=== PATIENT | male | born 1980 | race Caucasian/White ===

== ENCOUNTER 2021-01-13 10:22 | Emergency (ER) | payer OTHER ==
[2021-01-13 10:48] LABS: BASOPHILS # (AUTO) 0.1 10^3/uL (0.0-0.1); BASOPHILS % (AUTO) 0.9 %; EOSINOPHILS # (AUTO) 0.2 10^3/uL (0.0-0.7); EOSINOPHILS % (AUTO) 2.2 %; HCT - HEMATOCRIT 44.7 % (42.0-52.0); HGB - HEMOGLOBIN 15.8 g/dL (14.0-18.0); LYMPHOCYTES % (AUTO) 27.2 %; MEAN CORPUSCULAR HEMOGLOBIN 33.3 pg (27.0-31.0); MEAN CORPUSCULAR HGB CONC 35.3 g/dL (32.0-36.0); MEAN CORPUSCULAR VOLUME 94.3 fL (80.0-94.0); MEAN PLATELET VOLUME 9.8 fL (7.4-11.4); MONOCYTES # (AUTO) 0.6 10^3/uL (0.0-1.0); MONOCYTES % (AUTO) 8.1 %; NEUTROPHILS # (AUTO) 4.5 10^3/uL (1.5-6.6); NEUTROPHILS % (AUTO) 61.2 %; PLT - PLATELET COUNT 332 10^3/uL (130-450); RED BLOOD COUNT 4.74 10^6/uL (4.70-6.10); RED CELL DISTRIBUTION WIDTH 12.1 % (12.0-15.0); WHITE BLOOD COUNT 7.4 x10^3/uL (4.8-10.8)
[2021-01-13] MEDS: SODIUM CHLORIDE 0.9% 1,000 ML IV STA (10:50)
--- NOTE | 2021-01-13 10:51 | ED Physician Documentation ---
History of Present Illness - Stated complaint Stated Complaint: CHEST TIGHTNESS/FAINTING - History obtained from History obtained from: Patient - Additonal information Additional information: 40-year-old man, previously healthy, without family history of coronary artery disease or cardiomyopathy, presents with fainting episode this morning and here in the emergency department. I was called to his room after he had been checked and and hooked up to the bus driver/monitor because he was speaking to the nurse and had an episode of rigor with eyes rolling back and bus driver/monitor briefly flat lining for 20 second interval. Upon review of bus driver/monitor patient was in NSR before and afterward. Patient returned to baseline immediately, did not bite tongue, no incontinence. He states he felt a wave of lightheadedness prior to passing out in the ED, as well as when it happened this morning at the place he stayed in [place]. patient went out last night, had 3 alcoholi beverages, and stayed at a friend's house in [place], sleeping well and waking up feeling normal. He ate breakfast and was watching TV on the couch when he felt a wave of nausea and lightheadedness and passed out. He then was driving and became lightheaded again, so came to the ED. He had a fainting episode in the past while showering with similar preceding symptoms of nausea and dizziness, was told by doctor it was likely vasovagal. Review of Systems Ten Systems: 10 systems reviewed and negative Constitutional: reports: Fatigue. denies: Fever, Chills Cardiac: denies: Chest pain / pressure Respiratory: denies: Dyspnea Neurologic: reports: Syncope PD PAST MEDICAL HISTORY - Present Medications Home Medications: Ambulatory Orders Medication Instructions Recorded Confirmed No Known Home Medications 01/13/21 01/13/21 - Allergies Allergies/Adverse Reactions: Allergies Allergy/AdvReac Type Severity Reaction Status Date / Time codeine Allergy Hives Verified 01/13/21 11:28 PD ED PE NORMAL - Vitals Vital signs reviewed: Yes - General General: Alert and oriented X 3, No acute distress, Well developed/nourished - HEENT HEENT: Atraumatic, PERRL, EOMI - Neck Neck: Supple, no meningeal sign - Cardiac Cardiac: RRR - Respiratory Respiratory: No respiratory distress, Clear bilaterally - Abdomen Abdomen: Non tender, Non distended - Derm Derm: Normal color, Warm and dry - Extremities Extremities: No deformity - Neuro Neuro: Alert and oriented X 3, environmental analyst 2-12 intact, No motor deficit, No sensory deficit - Psych Psych: Normal mood, Normal affect Results - Vitals Vitals: Vital Signs - 24 hr 01/13/21 01/13/21 01/13/21 10:33 10:45 11:19 Temperature 36.7 C Heart Rate 74 77 73 Respiratory 11 L 12 21 Rate Blood Pressure 155/86 H 147/75 H 145/70 H O2 Saturation 99 95 95 01/13/21 01/13/21 01/13/21 11:30 11:56 12:00 Temperature Heart Rate 71 56 L 67 Respiratory 17 9 L 13 Rate Blood Pressure 147/81 H 128/74 130/69 O2 Saturation 98 93 100 Oxygen O2 Source Nasal cannula Oxygen Flow Rate 2 - EKG (time done) 1026 Rate: Rate (enter#) (74) Rhythm: NSR [place]: Normal Intervals: Normal UT QRS: Normal Ischemia: Normal ST segments 1036 Rate: Rate (enter#) (66) Rhythm: NSR [place]: Normal Intervals: Normal UT QRS: Normal Ischemia: Normal ST segments - Labs Labs: Laboratory Tests 01/13/21 01/13/21 01/13/21 10:31 10:31 10:31 WBC 7.4 RBC 4.74 Hgb 15.8 Hct 44.7 MCV 94.3 H MCH 33.3 H MCHC 35.3 RDW 12.1 Plt Count 332 MPV 9.8 Neut # (Auto) 4.5 Lymph # (Auto) 2.0 [place] # (Auto) 0.6 Eos # (Auto) 0.2 Baso # (Auto) 0.1 Absolute Nucleated RBC 0.00 Nucleated RBC % 0.0 Sodium 137 Potassium 4.3 Chloride 99 L Carbon Dioxide 29 Anion Gap 9.0 BUN 14 Creatinine 1.2 Estimated GFR (MDRD) 67 L Glucose 116 H Calcium 9.5 Total Bilirubin 1.2 H AST 30 ALT 41 Alkaline Phosphatase 48 Troponin I High Sens 3.1 Total Protein 7.7 Albumin 4.7 Globulin 3.0 Albumin/Globulin Ratio 1.6 Lipase 25 01/13/21 11:51 WBC RBC Hgb Hct MCV MCH MCHC RDW Plt Count MPV Neut # (Auto) Lymph # (Auto) [place] # (Auto) Eos # (Auto) Baso # (Auto) Absolute Nucleated RBC Nucleated RBC % Sodium Potassium Chloride Carbon Dioxide Anion Gap BUN Creatinine Estimated GFR (MDRD) Glucose Calcium Total Bilirubin AST ALT Alkaline Phosphatase Troponin I High Sens 2.6 Total Protein Albumin Globulin Albumin/Globulin Ratio Lipase PD MEDICAL DECISION MAKING - ED course ED course: 40-year-old man presents with multiple fainting episodes this morning, one of them witnessed in the emergency room with sinus pauses of 20 seconds on bus driver/monitor. We will continue to monitor and obtain lab work and chest x-ray. 11:09am - patient with 2nd fainting episode in ED, again with Sinus pause of about 20 seconds on bus driver/monitor. Patient had preceding dizziness. RNs initiated CPR and patient came back to consciousness. repeat CXR without apparent rib fracture. Labwork noncontributory. will work on transfer for cardiology eval in light of these 20 sec asystolic periods accompanying his syncopal episodes. 11:56am - 3rd episode of syncope. patient felt rushing in his arms, legs, and sensation of anxiety in his chest, pressed his call button, and by the time we got there he had fainted very briefly. no sinus pause on the monitor this time but he did become bradycardic to the 40s. third ekg unchanged except for mild UT lengthening (now 208). 12:30pm - d/w Dr. Osman Ramirez, [facility] food preparation kitchen aide in regards to symptoms. happy to accept in transfer. d/w transfer center who are trying to find a bed for him. will call us back with update.
--- NOTE | 2021-01-13 11:10 | XRAY Report ---
PROCEDURE: Chest 1 View X-Ray INDICATIONS: Chest Pain TECHNIQUE: One view of the chest was acquired. COMPARISON: None FINDINGS: Surgical changes and devices: None. Lungs and pleura: No pleural effusions or pneumothorax. Lungs are clear. Mediastinum: Mediastinal contours appear normal. Heart size is normal. Bones and chest wall: No suspicious bony lesions. Overlying soft tissues appear unremarkable. IMPRESSION: No acute process. Reviewed by: Tess Navas MD on 01/13/2021 10:09 AM RODRIGUEZ Approved by: Tess Navas MD on 01/13/2021 10:09 AM RODRIGUEZ Station ID: [id number]
[2021-01-13 11:13] LABS: ALBUMIN 4.7 g/dL (3.2-5.5); ALBUMIN/GLOBULIN RATIO 1.6 (1.0-2.2); BILIRUBIN,TOTAL 1.2 mg/dL (0.2-1.0); CALCIUM 9.5 mg/dL (8.5-10.3); CREATININE 1.2 mg/dL (0.6-1.2); POTASSIUM 4.3 mmol/L (3.5-5.0); TOTAL PROTEIN 7.7 g/dL (6.7-8.2)
--- NOTE | 2021-01-13 11:20 | XRAY Report ---
PROCEDURE: Chest 1 View X-Ray INDICATIONS: POST CPR TECHNIQUE: One view of the chest was acquired. COMPARISON: 01/13/2021 at 1030 hours FINDINGS: Surgical changes and devices: None. Lungs and pleura: No pleural effusions or pneumothorax. Low lung volumes. Mild bilateral perihilar a telectasis. Mediastinum: Mediastinal contours appear normal. Heart size is normal. Bones and chest wall: No suspicious bony lesions. Overlying soft tissues appear unremarkable. IMPRESSION: No acute process. Reviewed by: Tess Navas MD on 01/13/2021 10:19 AM RODRIGUEZ Approved by: Tess Navas MD on 01/13/2021 10:19 AM RODRIGUEZ Station ID: [id number]
[2021-01-13] MEDS: SODIUM CHLORIDE 0.9% 1,000 ML IV ONE (12:10)
[2021-01-13 12:32] LABS: CORONAVIRUS 229E-RESP PCR NOT DETECTED; CORONAVIRUS HKU1-RESP PCR NOT DETECTED; CORONAVIRUS NL63-RESP PCR NOT DETECTED; CORONAVIRUS OC43-RESP PCR NOT DETECTED; HUMAN METAPNEUMOVIRUS NOT DETECTED; INFLUENZA A- RESP PCR PANEL NOT DETECTED; RHINOVIRUS/ENTEROVIRUS NOT DETECTED; SARS-CoV-2 -RESP PCR PANEL NOT DETECTED
[2021-01-13 12:33] LABS: B. PARAPERTUSSIS- RESP PCR PAN NOT DETECTED; B. PERTUSSIS- RESP PCR PANEL NOT DETECTED; C. PNEUMONIAE- RESP PCR PANEL NOT DETECTED; INFLUENZA B - RESP PCR PANEL NOT DETECTED; M. PNEUMONIAE- RESP PCR PANEL NOT DETECTED; PARAINFLUENZA VIRUS 1 NOT DETECTED; PARAINFLUENZA VIRUS 2 NOT DETECTED; PARAINFLUENZA VIRUS 3 NOT DETECTED; PARAINFLUENZA VIRUS 4 NOT DETECTED; RSV- RESP PCR PANEL NOT DETECTED
[2021-01-13 13:02] VITALS: BP 142/70
== END 2021-01-13 13:22 | disposition short-term general hospital (02) ==
LOC: ED 10:22
DX: R55 Syncope and collapse (principal); I49.5 Sick sinus syndrome; Z20.822 Contact with and (suspected) exposure to COVID-19
CPT/HCPCS: 0202U; 36415; 71045; 80053; 83690; 84484; 85025; 92950; 93005; 96360; 96361; 99284; 99285

== ENCOUNTER 2021-04-02 10:43 | Outpatient (CLI) | payer OTHER ==
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
== END 2021-04-02 10:44 | disposition home or self-care (01) ==
LOC: SC 10:43
PROVIDERS: ATTEND Internal Medicine Pulmonary Disease
DX: R06.83 Snoring (principal); G47.8 Other sleep disorders; R41.89 Other symptoms and signs involving cognitive functions and awareness; G47.10 Hypersomnia, unspecified; E66.3 Overweight; Z68.28 Body mass index [BMI] 28.0-28.9, adult
CPT/HCPCS: 99202; 99212

== ENCOUNTER 2021-07-12 20:32 | Outpatient (CLI) | payer OTHER | END 2021-07-12 20:33 | disposition home or self-care (01) | LOC: SC 20:32 | PROVIDERS: ATTEND Internal Medicine Pulmonary Disease | DX: G47.33 Obstructive sleep apnea (adult) (pediatric) (principal); G47.61 Periodic limb movement disorder | CPT/HCPCS: 95810 ==

== ENCOUNTER 2021-08-01 09:09 | Outpatient (CLI) | payer OTHER ==
[2021-08-01 09:43] VITALS: BP 127/78
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
== END 2021-08-01 09:10 | disposition home or self-care (01) ==
LOC: SC 09:09
PROVIDERS: ATTEND Nurse Practitioner Family
DX: G47.33 Obstructive sleep apnea (adult) (pediatric) (principal); G47.61 Periodic limb movement disorder; R09.02 Hypoxemia
CPT/HCPCS: 99212; 99213

== ENCOUNTER 2021-10-24 12:55 | Outpatient (CLI) | payer OTHER ==
[2021-10-24 13:48] VITALS: BP 147/94
--- NOTE | 2021-10-24 13:48 | SLEEP CARE CONSULTATION ---
Information from patient questionnaire entered by Karla Ellis MA. I have reviewed and concur with the information entered by Karla Ellis MA. This document represents the service I personally performed and the decisions made by , Rosa Hammond ARNP. History of Present Illness Service Date and Time: 10/24/2021 1255 Previous diagnosis: Mild, Obstructive Sleep Apnea-Hypopnea Syndrome AHI: 11.9 (in 2021) Reason for follow up: first compliance (09/10/2021 SET UP, RESMED, ) Equipment type: CPAP Equipment obtained from: [facility] (got initial supplies) Mask style: Nasal Mask brand: Resmed Backup mask available: No (will keep old mask when replaced) Last cushion change: 1 month Prior sleep studies: No Type of Sleep Study: Polysomnography (F/U POLY, AUTH EXPIRES 08/06/21,) HPI additional information: DONELL PATEL was diagnosed to have mild, AHI 11.9, obstructive sleep apnea- hypopnea syndrome and returned today for CPAP therapy first compliance ([employer]Med) follow-up. Sleep Study - Results Type of Sleep Study: Polysomnography (F/U POLY, AUTH EXPIRES 08/06/21,) Prior sleep studies: No CPAP Compliance Data - Data Reviewed with Patient Average duration of nightly device use: 4 HOURS 15 MINUTES Compliance rate %: 53 Current pressure setting (cmH2O): 4-15 (median 6.2, avg 8.9, max 10.4) Average residual AHI: 3.7 Central apnea: .9 Obstructive apnea: 1.6 Average large leak: 14.6 Subjective Missed days of use due to: reports: travel () Patient concerns: reports: mask discomfort, mask leak noise (just needs to adjust mask). denies: aerophagia, air blowing in eyes, condensation in mask/hose, nasal congestion, dry mouth, nose, throat, epistaxis, other Observed to snore while using device: No Current pressure setting perceived as: comfortable Initial [place] Sleepiness Scale score: 20 (in 2020) Current [place] Sleepiness Scale score: 10 (10/2021) Allergies and Home Medications Known drug allergies: Yes (CODEINE) Drug allergies reviewed: Yes Home medication list reviewed: Yes (no changes) Allergy and home medication list: Allergies codeine Allergy (Verified 01/13/21 11:28) Viry Review of Systems Review of systems same as previous: Yes (no changes) Physical Exam Vital signs obtained and entered by: MAURO WEEMS Blood Pressure: 147/94 (RIGHT, PULSE 74, RESP 16, ) Heart Rate: 72 O2 Saturation: 97 (PAPER MASK) Height: 6 ft 2 in Impression and Plan 1. Obstructive Sleep Apnea-Hypopnea Syndrome, mild, with fair treatment compliance and good apnea control. On CPAP therapy, the patient has better sleep quality and is more rested overall. The patients pressure will be changed to autoCPAP 7-11 cmH20 to reflect pressure being used. Patient advised to contact me if pressure change is uncomfortable so that it can be adjusted. Goals for apnea control discussed. He has been adjusting to having the mask on his face and the initial discomfort is diminishing. He asks about leaking from top of headgear and I let him know this is normal for this style of mask. He denies any other problems with skin irritation, epistaxis, oral dryness or aerophagia. Patient's apnea severity and rationale for treatment to reduce apnea, improve sleep quality and reduce cardiovascular and cerebrovascular events was reviewed. I also reviewed the benefit of consistent device use of CPAP for cardiac disease. He was encouraged to lose weight to reduce apneas and improve his overa ll health. * Change auto CPAP pressure to 7-11 cmH2O * Notify me if snoring with mask or feeling that the pressure is too much or too little * Attempt to lose weight * Call this office if any problems using CPAP * Return for follow up in 1-2 months, or sooner if concerns arise Counseling Topics: Spare mask, Weight loss health impact Visit Type: In Office Time Spent with Patient (minutes): 17 Provider Statement: I spent 100% of the Face to Face Visit with the patient with greater than 50% spent counseling the patient and coordination of care.
== END 2021-10-24 12:56 | disposition home or self-care (01) ==
LOC: SC 12:55
PROVIDERS: ATTEND Nurse Practitioner Family
DX: G47.33 Obstructive sleep apnea (adult) (pediatric) (principal)
CPT/HCPCS: 99212; 99213

== ENCOUNTER 2022-04-15 23:33 | Outpatient (CLI) | payer OTHER | END 2022-04-15 23:34 | disposition EMS.NT | LOC: EMS 23:33 | DX: Z04.1 Encounter for examination and observation following transport accident (principal) ==